=== PATIENT | female | born 1960 | race Caucasian/White ===

== ENCOUNTER → 2019-01-25 | Outpatient (CLI) | payer BC ==
[~2019-01-25] MED LIST: FERROUS GLUCONA27 MG PO; PROFERRIN ES12 MG PO; SYNTHROID 0.0.025 MG PO; SYNTHROID0.125 MG PO; ZOFRAN 4MG T4 MG/TAB PO
== END ==
LOC: MC.RAD 10:15
DX: Z12.31 Encounter for screening mammogram for malignant neoplasm of breast (principal)

== ENCOUNTER → 2020-03-13 | Outpatient (CLI) | payer BC | LOC: MC.RAD 06:57 | DX: Z12.31 Encounter for screening mammogram for malignant neoplasm of breast (principal) ==

== ENCOUNTER → 2021-03-16 | Outpatient (CLI) | payer OTHER | LOC: MC.RAD 07:43 | DX: Z12.31 Encounter for screening mammogram for malignant neoplasm of breast (principal); R23.4 Changes in skin texture; R60.0 Localized edema ==

== ENCOUNTER 2021-08-06 10:47 | Outpatient (RCR) | payer OTHER | END 2021-10-30 | disposition home or self-care (01) | LOC: WSST | DX: R13.12 Dysphagia, oropharyngeal phase (principal) ==

== ENCOUNTER → 2021-08-13 | Outpatient (CLI) | payer OTHER | LOC: COL.RAD 14:51 | DX: R13.10 Dysphagia, unspecified (principal) ==

== ENCOUNTER → 2022-05-17 | Outpatient (CLI) | payer OTHER | LOC: MC.RAD 13:42 | DX: Z12.31 Encounter for screening mammogram for malignant neoplasm of breast (principal) ==

== ENCOUNTER 2023-02-02 05:25 | Day surgery (SDC) | payer BC ==
[~2023-02-02] VITALS: Ht 162.6 cm; Wt 157.7 kg
[2023-02-02] VITALS (11 sets, daily range): BP systolic 84–99; BP diastolic 36–78; PULSE 53–96; TEMP 97.3–98.2
[2023-02-02] MEDS ORDERED: NIACIN250 M2 PO (06:21)
[2023-02-02] MEDS ORDERED: OMEGA-3 1000 MG1 CAP PO (06:22)
[2023-02-02] MEDS ORDERED: MULTI VITAMINS1 TAB PO (06:22)
[2023-02-02] MEDS ORDERED: CALCIUM 600MG+D1 TAB PO (06:23)
--- NOTE | 2023-02-02 15:06 | NUR ---
Initial visit; Patient and family thanked [employer] for checking on her after her surgical procedure, wishing her well and keeping her in certified midwife's prayers.
--- NOTE | 2023-02-02 15:56 | NUR ---
Patient arrived to the unit from pacu at 1250. Vital sign take, Patient hypotensive with a reading of 99/48. Patient reports of lightheadedness. Patient is on IV fluid of LR on gravity. Bulky dressing on right hip dry and intact. ICE pack in place. Patient oriented to room and the use of call taylor. Family at the bed. Dr. Herrera notified of patient with episode of hypotensive.
--- NOTE | 2023-02-02 21:41 | NUR ---
Patient assessed at this time, head to toe assessment done, see shift assessment, rates her pain at 3/10, denies the need for pain meds at this time, with NS running at 100cc/hr, with bulky dressing to right hip CDI, ICE and SCD's on, denies further needs, call light and personal items within reach, will continue to monitor.
[2023-02-03 03:03] VITALS: BP 60/34; BP 91/40; PULSE 87; TEMP 98.2
[2023-02-03 03:16] VITALS: BP 110/70
--- NOTE | 2023-02-03 03:16 | NUR ---
This nurse was informed by the tech that patient's blood pressure was 60's systolic. Rechecked and it was 90's, patient asymptomatic. This nurse manually rechecked and it was 110/60.
[2023-02-03 07:01] LABS: HEMATOCRIT 30.3 % (37.0-47.0); HEMOGLOBIN 9.8 g/dl (12.5-16.0)
[2023-02-03 07:15] LABS: CALCIUM 8.5 mg/dL (8.4-10.2); CREATININE, serum 0.72 mg/dL (0.57-1.11)
[2023-02-03 07:33] VITALS: BP 110/46; PULSE 98; TEMP 97.9
--- NOTE | 2023-02-03 10:10 | NUR ---
PATIENT ALERT AND ORIENTED X4. VSS WITH THE EXCEPTION OF BP BEING SOFT. PATIENT CONTINUES ON MAINTENANCE FLUIDS RUNNING AT 100ML/HOUR IN LEFT HAND. PATIENT REPORTS PAIN 5/10, REQUESTS PAIN MEDICATION. DRESSING TO RIGHT HIP, CDI. JOSÉ HOSE ON. PATIENT UP WITH THERAPY. AM MEDS ADMINISTERED. ASSESSMENT PERFORMED. CALL LIGHT IN REACH.
[2023-02-03 11:00] VITALS: BP 109/48; PULSE 99; TEMP 97.9
--- NOTE | 2023-02-03 13:10 | NUR ---
Follow-up visit; Patient thanked Sharemilker for looking in on her again and states she is doing well (her appearance says she's feeling well). Sharemilker offered continued Blessings and will keep her in Sharemilker's prayers.
--- NOTE | 2023-02-03 16:10 | NUR ---
SW met with patient to complete intake. Patient reports that she lives at home alone in [place], but is planning on staying with her mother Krista for a few weeks once discharged. Patient reports to being fully independent with her ADL's and IADL's at home. She has a cane that she was utilizing prior to surgery, but verbalizes that she would like a walker to discharge home with. Patient has no home oxygen needs. PCP is and she utilizes [facility] for prescriptions. Patient reports that she does not have a DPOA- established at this time and does not wish to create one. Patient is not but has an adult child, Madelyn ([phone]) . ROHAN collaborated with patient, patients RN and Kassidy and due to patient being TTWB, therapy is not needed at this time, and the 's office will establish once appropriate. Patients walker order sent to [facility]. Phone call made to Samreen at [facility] to inform that order is on its way and that the patient will need it delivered. Kassidy to sign order once out of clinic. Patient RN insturcted to faxed signed order. Discharge plan: Home with family
[2023-02-03 16:31] VITALS: BP 110/51; PULSE 111; TEMP 98.5
[2023-02-03] MEDS ORDERED: PERCOCET 325 MG1 TA2 PO (16:52)
[2023-02-03] MEDS ORDERED: DOXYCYCLINE 10100 MG PO (16:52)
[2023-02-03] MEDS ORDERED: ASPIRIN 81M81 MG/TA2 PO (16:52)
[2023-02-03] MEDS ORDERED: CELEBREX 200MG200 MG PO (16:53)
--- NOTE | 2023-02-03 17:47 | NUR ---
DISCHARGE INSTRUCTIONS PROVIDED. PATIENT EDUCATION GIVEN. IV DC'D. FOLLOW UP APPOINTMENT DISCUSSED. PATIENT AWARE THAT [facility] WITH [facility]POINTMENT. MEDICATIONS REVIEWED. PATIENT DENIES ANY QUESTIONS OR CONCERNS. PATIENT ESCORTED OUT VIA WHEELCHAIR.
== END 2023-02-03 18:00 | disposition home or self-care (01) ==
LOC: SDCO 05:25 → SURG 11:47 → SDCO 02-03 18:00
PROVIDERS: Orthopaedic Surgery
DX: T84.030A Mechanical loosening of internal right hip prosthetic joint, initial encounter (principal); T84.84XA Pain due to internal orthopedic prosthetic devices, implants and grafts, initial encounter; I95.81 Postprocedural hypotension; E03.1 Congenital hypothyroidism without goiter; R73.03 Prediabetes; M91.10 Juvenile osteochondrosis of head of femur [Legg-Calve-Perthes], unspecified leg; H91.90 Unspecified hearing loss, unspecified ear; Z79.899 Other long term (current) drug therapy; Z79.890 Hormone replacement therapy; Z87.891 Personal history of nicotine dependence; Z28.310 Unvaccinated for COVID-19
CPT/HCPCS: OP; A9284; C1713; C1776; J0690; J1580; J1815; J1885; J2270; J2370; J2704; J2795; J3010; J7030; J7120

== ENCOUNTER 2024-03-01 07:55 | Day surgery (SDC) | payer BC ==
[~2024-03-01] VITALS: Ht 161.3 cm; Wt 70.7 kg
[~2024-03-01 07:55] MED LIST changes: +ASPIRIN 81M81 MG/TA2 PO; +CALCIUM 600MG+D1 TAB PO; +CELEBREX 200MG200 MG PO; +DOXYCYCLINE 10100 MG PO; +LR 1,000 ML IV SCH; +MULTI VITAMINS1 TAB PO; +NIACIN250 M2 PO; +OMEGA-3 1000 MG1 CAP PO; +Ondansetron 4 MG/2 ML VIAL IV PRN; +PERCOCET 325 MG1 TA2 PO
[2024-03-01] MEDS ORDERED: SYNTHROID0.125 MG/T PO (08:42)
[2024-03-01] MEDS ORDERED: BENADRYL25 M2 PO (08:44)
[2024-03-01 09:45] VITALS: BP 111/63; PULSE 71; TEMP 97.6
[2024-03-01] MEDS ORDERED: fentaNYL 50 MCG/ML 2 ML VIAL ONE (09:47)
[2024-03-01] MEDS ORDERED: Lidocaine PF 2% (20 MG/ML) 5 ML VIAL ONE ×2 (09:47→10:18)
[2024-03-01 10:32] VITALS: BP 111/63; PULSE 71; TEMP 97.6
[2024-03-01 10:45] VITALS: BP 113/66; PULSE 72; TEMP 97.8
[2024-03-01 11:00] VITALS: BP 107/64; PULSE 76
[2024-03-01 11:15] VITALS: BP 107/57; PULSE 74
--- NOTE | 2024-03-01 11:45 | NUR ---
1045 RETURNS TO ROOM 4 PER CART. AWAKE, ALERT. RESP UNLABORED. AMBULATES TO RECLINER WITH STAND BY ASSIST. DENIES NAUSEA OR ABD PAIN. VITAL SIGNS OBTAINED. CALL LIGHT AT SIDE. 1100 TOLERATES PO JUICE AND ICE CREAM WITHOUT NAUSEA 1109 DISCHARGE INSTRUCTIONS REVIEWED. PATIENT VERBALIZES UNDERSTANDING. COPY PROVIDED IN DISCHARGE FOLDER 1125 AWAKE, ALERT. SITS IN RECLINER. AWAITING VISIT WITH DR. BHATT PRIOR TO DISCHARGE [address] BHATT HERE TO VISIT WITH PATIENT
== END 2024-03-01 11:45 | disposition home or self-care (01) ==
LOC: SDCO 07:55
DX: Z12.11 Encounter for screening for malignant neoplasm of colon (principal); D17.5 Benign lipomatous neoplasm of intra-abdominal organs; K63.5 Polyp of colon; K57.30 Diverticulosis of large intestine without perforation or abscess without bleeding; E11.9 Type 2 diabetes mellitus without complications; E78.5 Hyperlipidemia, unspecified; E03.9 Hypothyroidism, unspecified; Z87.891 Personal history of nicotine dependence; Z79.84 Long term (current) use of oral hypoglycemic drugs
CPT/HCPCS: J2704; J3010; J7120

== ENCOUNTER → 2024-06-22 | Outpatient (CLI) | payer BC ==
[~2024-06-22] MED LIST changes: +BENADRYL25 M2 PO; -LR 1,000 ML IV SCH; -Ondansetron 4 MG/2 ML VIAL IV PRN; +SYNTHROID0.125 MG/T PO
[2024-06-22 12:10] LABS: BASO % 0.6 % (0.0-2.0); EOS # 0.1 K/mm3 (0.0-0.7); EOS % 2.1 % (0.0-4.0); GRAN % 57.1 % (42.2-75.2); HEMATOCRIT 41.2 % (37.0-47.0); HEMOGLOBIN 14.2 g/dl (12.5-16.0); LYMPH # 1.7 K/mm3 (1.2-3.4); LYMPH % 31.6 % (20.0-51.0); MEAN CELL VOLUME 89 fl (80.0-100.0); MEAN CORPUSCULAR HEMOGLOBIN 31 pg (27-31); MEAN CORPUSCULAR HGB CONC 35 g/dl (33.0-37.0); MEAN PLATELET VOLUME 9.1 fl (7.4-10.4); MONO # 0.4 K/mm3 (0.1-0.6); MONO % 8.4 % (1.7-9.3); PLATELET COUNT 257 K/mm3 (130-400); RED BLOOD COUNT 4.64 M/mm3 (4.10-5.30); REDCELL DISTRIBUTION WIDTH-CV 12.8 % (11.5-14.5)
[2024-06-22 12:18] LABS: ERYTHROCYTE SEDIMENTATION RATE 56 mm/hr (0-30)
== END ==
LOC: COL.LAB 11:21
PROVIDERS: Orthopaedic Surgery
DX: Z96.641 Presence of right artificial hip joint (principal)